=== PATIENT | male | born 1970 | race Two or more races ===

== ENCOUNTER 2018-02-03 13:10 | Emergency (ER) | payer MEDICAID ==
[~2018-02-03] VITALS: Ht 604 cm; Wt 84.5 kg
[~2018-02-03 13:10] MED LIST: ALPR-624 PO; FURO-150 PO; GABA600T2 PO; HYDR-565 PO; INSU100V11; LANTUS SQ; LOSA25TA96 PO; METO-467 PO; METO5TAB98 PO; OMEP20TA5 PO; PROC-8 PO; SIMV20TA5 PO; SYRI1DIS90
[2018-02-03 13:14] VITALS: BP 182/116
[2018-02-03] MEDS ORDERED: metoclopramide 5 mg/ml inj IV ONE (14:50)
[2018-02-03] MEDS ORDERED: diphenhydrAMINE 50 mg/ml inj IV ONE (14:50)
[2018-02-03] MEDS ORDERED: haloperidol lactate 5mg/ml inj IM ONE (14:50)
[2018-02-03] MEDS ORDERED: ondansetron/PF 4mg/2ml inj IV ONE (14:50)
[2018-02-03 15:00] LABS: BASOPHILS # (AUTO) 0.1 X10'3 (0-0.2); BASOPHILS % (AUTO) 0.9 % (0-1); EOSINOPHILS # (AUTO) 0.1 X10'3 (0-0.9); EOSINOPHILS % (AUTO) 1.6 % (0-6); HEMATOCRIT 28.5 % (42.0-52.0); HEMOGLOBIN 9.5 g/dl (14.0-17.9); LYMPHOCYTES # (AUTO) 2.4 X10'3 (1.1-4.8); LYMPHOCYTES % (AUTO) 27.6 % (21-51); MEAN CORPUSCULAR HEMOGLOBIN 26.2 PG (27.0-31.0); MEAN CORPUSCULAR HGB CONC 33.4 % (33.0-36.5); MEAN CORPUSCULAR VOLUME 78.4 FL (78-98); MEAN PLATELET VOLUME 8.9 FL (7.4-10.4); MONOCYTES # (AUTO) 0.9 X10'3 (0-0.9); MONOCYTES % (AUTO) 10.1 % (2-12); NEUTROPHILS # (AUTO) 5.2 X10'3 (1.8-7.7); NEUTROPHILS % (AUTO) 59.8 % (42-75); PLATELET COUNT 423 X10'3 (140-440); RED BLOOD COUNT 3.63 X10'6 (4.70-6.10); RED CELL DISTRIBUTION WIDTH 15.1 % (11.5-14.5); WHITE BLOOD COUNT 8.7 X10'3 (4.5-11.0)
[2018-02-03 15:20] LABS: ALANINE AMINOTRANSFERASE 13 U/L (12-78); ALBUMIN 2.6 G/DL (3.4-5.0); ALBUMIN/GLOBULIN RATIO 0.6 (1.1-1.5); ALKALINE PHOSPHATASE 118 IU/L (46-116); ANION GAP 7 (8-16); ASPARTATE AMINO TRANSFERASE 15 U/L (10-37); BILIRUBIN,TOTAL 0.3 MG/DL (0.1-1.0); BLOOD UREA NITROGEN 14 MG/DL (7-18); BUN/CREATININE RATIO 9.2 (5.4-32.0); CALCIUM 8.7 MG/DL (8.5-10.1); CHLORIDE 97 MMOL/L (99-107); CREATININE 1.52 MG/DL (0.60-1.10); GLUCOSE 54 MG/DL (70-104); POTASSIUM 3.2 MMOL/L (3.5-5.1); SODIUM 134 MMOL/L (135-145); TOTAL CARBON DIOXIDE 30.5 MMOL/L (24-32); TOTAL PROTEIN 6.8 G/DL (6.4-8.2); eGFR 49 ML/MIN
[2018-02-03] MEDS ORDERED: potassium Cl 20 mEq SR tablet PO ONE (16:45)
[2018-02-03] MEDS ORDERED: KEF125L PO (17:03)
[2018-02-03] MEDS ORDERED: HYDR473S54 PO (17:03)
[2018-02-03] MEDS ORDERED: potassium Cl oral solution 20 MEQ/15 ML PO ONE (17:05)
== END 2018-02-03 15:15 | disposition home or self-care (01) ==
LOC: ER 13:10
DX: R11.2 Nausea with vomiting, unspecified (principal); R68.84 Jaw pain; E78.00 Pure hypercholesterolemia, unspecified; I10 Essential (primary) hypertension; E11.43 Type 2 diabetes mellitus with diabetic autonomic (poly)neuropathy; K31.84 Gastroparesis; Z98.890 Other specified postprocedural states; Z79.4 Long term (current) use of insulin; Z79.899 Other long term (current) drug therapy
CPT/HCPCS: 36415; 80053; 82948; 85025; 96372; 96374; 96375; 99284; J1200; J1630; J2405; J2765; J7030